=== PATIENT | female | born 1955 | race Caucasian/White ===

== ENCOUNTER 2016-09-19 15:17 | Emergency (ER) | payer OTHER ==
[~2016-09-19] VITALS: Ht 160 cm; Wt 63.5 kg
[2016-09-19 15:27] VITALS: TEMP 36.9; Ht 160 cm; Wt 63.5 kg
[2016-09-19] MEDS ORDERED: PREG200C PO ×2 (16:10)
[2016-09-19] MEDS ORDERED: DULO-24 PO (16:10)
[2016-09-19 16:14] LABS: BASO % 0.6 %; BASO ABS # 0.07 K/uL (0-0.2); COMPLETE YES; EOS % 1.6 %; HEMATOCRIT 51.7 % (37-47); IG% 0.3 %; LYMPH % 30.6 %; LYMPH ABS # 3.58 K/uL (1.2-3.4); MEAN CELL VOLUME 95.7 fL (80-100); MEAN CORPUSCULAR HEMOGLOBIN 33.1 pg (25-34); MEAN CORPUSCULAR HGB CONC 34.6 g/dl (32-36); MEAN PLATELET VOLUME 11.5 fL (7.4-10.4); MONO % 6.3 %; NEUT % 60.6 %; PLATELET COUNT 164 K/uL (130-400); WHITE BLOOD COUNT 11.71 K/uL (4.8-10.8)
[2016-09-19] MEDS ORDERED: KETOROLAC TROMETHAMINE 30 MG/ML VIAL IV STA (16:18)
[2016-09-19] MEDS ORDERED: FENTANYL CITRATE INJ 50 MCG/1 ML 2 ML VIAL IV STA (16:18)
[2016-09-19 16:19] LABS: PROTHROMBIN TIME (PATIENT) 10.5 SECONDS (9.0-12.0)
--- NOTE | 2016-09-19 16:22 | DIAGNOSTIC IMAGING REPORT ---
CHEST ONE VIEW PORTABLE CLINICAL HISTORY: Fever, sepsis, severe left-sided chest and shoulder pain. COMPARISON STUDY: No previous studies for comparison. FINDINGS: The cardiac and mediastinal contours are normal. There is no evidence of focal pulmonary consolidation. There is no evidence of failure. No pleural effusions are visualized.[ IMPRESSION: No active disease in the chest. Electronically signed by: Sacha Mena M.D. 09/19/2016 4:21 PM Dictated Date/Time: 09/19/2016 4:21 PM
[2016-09-19 16:26] LABS: ALT/SGPT 48 U/L (12-78); AST/SGOT 35 U/L (15-37); BLOOD UREA NITROGEN 12 mg/dl (7-18); CALCIUM 9.9 mg/dl (8.5-10.1); CARBON DIOXIDE 29 mmol/L (21-32); CHLORIDE 99 mmol/L (98-107); CREATININE 0.77 mg/dl (0.60-1.20); GLUCOSE 225 mg/dl (70-99); POTASSIUM 3.7 mmol/L (3.5-5.1); SODIUM 136 mmol/L (136-145)
[2016-09-19 16:28] LABS: ALKALINE PHOSPHATASE 136 U/L (45-117); CKMB/CK RATIO 2.2 (0-3.0)
[2016-09-19 16:39] VITALS: O2SAT 92
--- NOTE | 2016-09-19 17:27 | DIAGNOSTIC IMAGING REPORT ---
CT ANGIOGRAM OF THE CHEST CLINICAL HISTORY: Left-sided chest pain. Fever, sepsis. COMPARISON STUDY: Chest x-ray dated 09/19/2016 TECHNIQUE: Following the IV administration of 95 mL of Optiray-320, CT angiogram of the thorax was performed from the thoracic inlet to the lung bases utilizing the pulmonary embolus protocol. Images are reviewed in the axial, sagittal, and coronal planes. IV contrast was administered without complication. MIP imaging was performed. CT DOSE: 308.72 mGy.cm FINDINGS: There is hepatic steatosis. No pathologically enlarged mediastinal or hilar lymph nodes are visualized. There is a right axillary lymph node at the upper limits of normal in size. There was no evidence of thoracic aortic dilatation. There were no pulmonary artery filling defects to indicate acute pulmonary embolism. No pleural effusions are visualized. There is no focal pulmonary consolidation. There is minor basilar atelectasis. There is no pneumothorax. There is a 2 mm right upper lobe pulmonary nodule as visualized in image #[id number]. IMPRESSION: 1. No evidence of acute pulmonary embolism 2. No evidence of focal pulmonary consolidation 3. Hepatic steatosis Electronically signed by: Sacha Mena M.D. 09/19/2016 5:25 PM Dictated Date/Time: 09/19/2016 5:21 PM
[2016-09-19] MEDS ORDERED: OPTIRAY 320 IV PRN (17:30)
--- NOTE | 2016-09-19 17:51 | EMERGENCY ROOM VISIT NOTE ---
History Report prepared by Olman: Giovani Finley Under the Supervision of: Dr. Pa Antonio D.O. First contact with patient: 16:10 Chief Complaint: CHEST PAIN Stated Complaint: CHEST PAIN, Nursing Triage Summary: Chest pain. Patient was passenger in car and kind of choked because the air was dry in the car. PAtient states she felt a pop in her chest and then all of a sudden "I couldn't breath" Patient stated she had CP 10/10 in severity. History of Present Illness The patient is a 60 year old female who presents to the Emergency Room with complaints of sudden left sided chest pain beginning just prior to arrival. She currently rates her discomfort as a 6/10 in severity. The patient states she was walking out of her niece's graduation, and she coughed then felt a pop in the left side of her chest and lost her breath during the episode. She notes her pain worsens with movement, deep breathing, lifting her left arm, and pushing on the area. The patient states her chest pain radiates to her left shoulder blade, as well. She notes she fell forward onto her left side five days ago. Source of History: patient Onset: just prior to arrival Position: chest (left) Symptom Intensity: 6/10 Timing: other (sudden) Modifying Factors (Worsening): breathing (deep), movement, other (lifting her left arm, pushing on the area) Associated Symptoms: + chest pain (radiates to left shoulder blade) Review of Systems See HPI for pertinent positives & negatives. A total of 10 systems reviewed and were otherwise negative. Past Medical & Surgical Medical Problems: (1) Neuropathy Family History No pertinent family history Social History Smoking Status: Current Every Day Smoker Marital Status: Housing Status: lives with significant other Occupation Status: retired Current/Historical Medications Scheduled Duloxetine HCl (Cymbalta), 1 CAP PO BID Pregabalin (Lyrica), 200 MG PO QAM Pregabalin (Lyrica), 400 MG PO DAILY@1600 Allergies Coded Allergies: No Known Allergies (Unverified , 09/19/16) Physical Exam Vital Signs Date Time Temp Pulse Resp B/P Pulse Ox O2 Delivery O2 Flow Rate FiO2 09/19/16 16:50 91 22 154/85 96 Room Air 09/19/16 16:39 92 Room Air 09/19/16 16:05 89 09/19/16 15:27 97 Room Air 09/19/16 15:27 36.9 96 18 158/90 96 Room Air Physical Exam CONSTITUTIONAL/VITAL SIGNS: Reviewed / noted above. GENERAL: Non-toxic in appearance. INTEGUMENTARY: Warm, dry, and Marina. HEAD: Normocephalic. EYES: without scleral icterus or trauma. ENT/OROPHARYNX: clear and moist. LYMPHADENOPATHY/NECK: Is supple without lymphadenopathy or meningismus. RESPIRATORY: Lungs clear and equal. CARDIOVASCULAR: Regular rate and rhythm. CHEST: Tenderness in the left chest wall and obvious discomfort in the left chest wall with movement. GI/ABDOMEN: Soft and nontender. No organomegaly or pulsatile mass. No rebound or guarding. Normal bowel sounds. EXTREMITIES: Warm and well perfused. BACK: No CVA tenderness. NEUROLOGICAL: Intact without focal deficits. PSYCHIATRIC: normal affect. MUSCULOSKELETAL: Normally developed with good muscle tone. Medical Decision & Procedures ER Provider Diagnostic Interpretation: Radiology results as stated below per my review and radiologist interpretation: CHEST ONE VIEW PORTABLE CLINICAL HISTORY: Fever, sepsis, severe left-sided chest and shoulder pain. COMPARISON STUDY: No previous studies for comparison. FINDINGS: The cardiac and mediastinal contours are normal. There is no evidence of focal pulmonary consolidation. There is no evidence of failure. No pleural effusions are visualized.[ IMPRESSION: No active disease in the chest. Electronically signed by: Sacha Mena M.D. 09/19/2016 4:[address] ANGIOGRAM OF THE CHEST CLINICAL HISTORY: Left-sided chest pain. Fever, sepsis. COMPARISON STUDY: Chest x-ray dated 09/19/2016 TECHNIQUE: Following the IV administration of 95 mL of Optiray-320, CT angiogram of the thorax was performed from the thoracic inlet to the lung bases utilizing the pulmonary embolus protocol. Images are reviewed in the axial, sagittal, and coronal planes. IV contrast was administered without complication. MIP imaging was performed. CT DOSE: 308.72 mGy.cm FINDINGS: There is hepatic steatosis. No pathologically enlarged mediastinal or hilar lymph nodes are visualized. There is a right axillary lymph node at the upper limits of normal in size. There was no evidence of thoracic aortic dilatation. There were no pulmonary artery filling defects to indicate acute pulmonary embolism. No pleural effusions are visualized. There is no focal pulmonary consolidation. There is minor basilar atelectasis. There is no pneumothorax. There is a 2 mm right upper lobe pulmonary nodule as visualized in image #[id number]. IMPRESSION: 1. No evidence of acute pulmonary embolism 2. No evidence of focal pulmonary consolidation 3. Hepatic steatosis Electronically signed by: Sacha Mena M.D. 09/19/2016 5:25 PM Laboratory Results 09/19/16 15:15 Red Blood Count 5.40, Mean Corpuscular Volume 95.7, Mean Corpuscular Hemoglobin 33.1, Mean Corpuscular Hemoglobin Concent 34.6, Mean Platelet Volume 11.5, Neutrophils (%) (Auto) 60.6, Lymphocytes (%) (Auto) 30.6, Monocytes (%) (Auto) 6.3, Eosinophils (%) (Auto) 1.6, Basophils (%) (Auto) 0.6, Neutrophils # (Auto) 7.10, Lymphocytes # (Auto) 3.58, Monocytes # (Auto) 0.74, Eosinophils # (Auto) 0.19, Basophils # (Auto) 0.07 09/19/16 15:15 Test 09/19/16 15:15 White Blood Count 11.71 K/uL (4.8-10.8) Red Blood Count 5.40 M/uL (4.2-5.4) Hemoglobin 17.9 g/dL (12.0-16.0) Hematocrit 51.7 % (37-47) Mean Corpuscular Volume 95.7 fL (80-100) Mean Corpuscular Hemoglobin 33.1 pg (25-34) Mean Corpuscular Hemoglobin Concent 34.6 g/dl (32-36) Platelet Count 164 K/uL (130-400) Mean Platelet Volume 11.5 fL (7.4-10.4) Neutrophils (%) (Auto) 60.6 % Lymphocytes (%) (Auto) 30.6 % Monocytes (%) (Auto) 6.3 % Eosinophils (%) (Auto) 1.6 % Basophils (%) (Auto) 0.6 % Neutrophils # (Auto) 7.10 K/uL (1.4-6.5) Lymphocytes # (Auto) 3.58 K/uL (1.2-3.4) Monocytes # (Auto) 0.74 K/uL (0.11-0.59) Eosinophils # (Auto) 0.19 K/uL (0-0.5) Basophils # (Auto) 0.07 K/uL (0-0.2) RDW Standard Deviation 42.9 fL (36.4-46.3) RDW Coefficient of Variation 12.4 % (11.5-14.5) Immature Granulocyte % (Auto) 0.3 % Immature Granulocyte # (Auto) 0.03 K/uL (0.00-0.02) Prothrombin Time 10.5 SECONDS (9.0-12.0) Prothromb Time International Ratio 1.0 (0.9-1.1) Activated Partial Thromboplast Time 26.9 SECONDS (21.0-31.0) Partial Thromboplastin Ratio 1.0 Anion Gap 8.0 mmol/L (3-11) Est Creatinine Clear Calc Drug Dose 68.8 ml/min Estimated GFR () 96.6 Estimated GFR (Non- 83.3 BUN/Creatinine Ratio 15.0 (10-20) Calcium Level 9.9 mg/dl (8.5-10.1) Total Bilirubin 0.5 mg/dl (0.2-1) Direct Bilirubin mg/dl (0-0.2) Aspartate Amino Transf (AST/SGOT) 35 U/L (15-37) Alanine Aminotransferase (ALT/SGPT) 48 U/L (12-78) Alkaline Phosphatase 136 U/L (45-117) Total Creatine Kinase 102 U/L (26-192) Creatine Kinase MB 2.2 ng/ml (0.5-3.6) Creatine Kinase MB Ratio 2.2 (0-3.0) Troponin I < 0.015 ng/ml (0-0.045) Total Protein 9.4 gm/dl (6.4-8.2) Albumin 4.1 gm/dl (3.4-5.0) Lipase 247 U/L (73-393) Laboratory results as stated above per my review. Medications Administered Medications (Trade) Dose Ordered Sig/Manan Route Start Time Stop Time Status Last Admin Dose Admin Ketorolac Tromethamine (Toradol Inj) 30 mg NOW STAT IV 09/19/16 16:18 09/19/16 16:19 DC 09/19/16 16:45 30 MG Fentanyl Citrate (Fentanyl Inj) 100 mcg NOW STAT IV 09/19/16 16:18 09/19/16 16:19 DC 09/19/16 16:45 100 MCG ECG Indication: chest pain Rate (beats per minute): 98 Rhythm: normal sinus Findings: no ectopy, other (no acute injury) ED Course 161: Previous medical records were reviewed. The patient was evaluated in room B10. A complete history and physical examination was performed. 1617: Ordered Fentanyl Inj mcg IV, Toradol Inj 30 mg IV. 1741: On reevaluation, the patient is doing well. I discussed the results and findings with the patient. She verbalized agreement of the treatment plan. The patient was discharged home. Medical Decision the differential was considered includes acute myocardial infarction, acute coronary syndrome, myocarditis, pericarditis, pericardial effusions /tamponad, esophageal perforation, thoracic aortic dissection, pulmonary embolism, pneumonia, pneumothorax, pancreatitis, shingles, acute cholecystitis, perforated abdominal viscus. This is a 60-year-old female who presents to the ED with a chief complaint of a fall 5 days ago. Today she is visiting from out of town at college graduation for her niece. She states that she heard a large pop in her left chest after coughing. She came in for evaluation of this. Her vital signs are normal. Her physical exam did not reveal any obvious abnormalities other than some tenderness in the left chest wall exam. She also has discomfort with movement. Chest x-ray did not show acute disease. CT scan of the chest did not show acute disease. CBC and complete metabolic panel were unremarkable with exception of a glucose of 225. The patient states that she is currently diet- controlled diabetes. Troponin is negative. Lipase was negative. The patient was treated with IV Toradol and IV fentanyl. She was told the results. She is felt to be stable for discharge. Percocet home pack was provided. She was also advised to take 600 mg of ibuprofen every 6 hours for pain. Impression Primary Impression: Left-sided chest wall pain Scribe Attestation The scribe's documentation has been prepared under my direction and personally reviewed by me in its entirety. I confirm that the note above accurately reflects all work, treatment, procedures, and medical decision making performed by me. Departure Information Dispostion Home / Self-Care Referrals No Doctor, Assigned (PCP) Patient Instructions My [facility] Additional Instructions Percocet, take one every 8 hours for pain. No driving within 6 hours of use. Do not take additional Tylenol while taking Percocet. Ibuprofen: take 3 (600mg) every 6 hours for pain. Have your doctor recheck your blood sugar. It was elevated at 225 today. Have your doctor recheck your blood pressure as well.
[2016-09-19] MEDS ORDERED: PERCOCET HOME PACK PO ONE (18:00)
[2016-09-19 18:01] VITALS: BP 145/98; PULSE 93; O2SAT 95
== END 2016-09-19 18:06 | disposition home or self-care (01) ==
LOC: EDBD 15:17 → C.EDB 15:19
DX: R07.89 Other chest pain (principal); F17.200 Nicotine dependence, unspecified, uncomplicated